=== PATIENT | male | born 1975 | race Caucasian/White ===

== ENCOUNTER 2017-08-02 18:59 | Emergency (ER) | payer MEDICAID ==
[2017-08-02 19:07] VITALS: BP 124/78
[2017-08-02] MEDS ORDERED: IBUPROFEN 800 MG TABLET PO STA (19:34)
[2017-08-02] MEDS ORDERED: predniSONE 20 MG TABLET PO STA (19:34)
--- NOTE | 2017-08-02 19:36 | ED Physician Documentation ---
PD HPI HEENT - Stated complaint Stated Complaint: SORE THROAT - Chief complaint Chief Complaint: Heent - History obtained from History obtained from: Patient - History of Present Illness Timing - onset: Other (Sore throat for a week, at the outset he had sinus pressure and nasal drainage and a cough, but now it is just the throat. He has had some fatigue and difficulty swallowing but no fevers or cough at this juncture.) Review of Systems Constitutional: denies: Fever, Chills Nose: denies: Rhinorrhea / runny nose, Congestion Throat: reports: Sore throat Cardiac: denies: Chest pain / pressure Respiratory: denies: Cough PD PAST MEDICAL HISTORY - Past Surgical History Past Surgical History: Yes - Present Medications Home Medications: Ambulatory Orders Medication Instructions Recorded Confirmed Clindamycin [Cleocin] 300 mg PO Q6H 10 Days capsule 06/14/14 Oxycodone HCl/Acetaminophen 1 - 2 each PO Q6H PRN #15 tablet 06/14/14 [Percocet 5-325 mg Tablet] Ibuprofen [Motrin] 800 mg PO Q8H PRN #30 tablet 08/02/17 predniSONE [Deltasone] 60 mg PO DAILY 5 Days tablet 08/02/17 - Allergies Allergies/Adverse Reactions: Allergies Allergy/AdvReac Type Severity Reaction Status Date / Time No Known Drug Allergies Allergy Verified 08/02/17 19:07 - Social History Does the pt smoke?: No Smoking Status: Never smoker Does the pt drink ETOH?: Yes Does the pt have substance abuse?: No - Immunizations Immunizations are current?: Yes - POLST Patient has POLST: No PD ED PE NORMAL - Vitals Vital signs reviewed: Yes - General General: Alert and oriented X 3, No acute distress - HEENT HEENT: Other (Voice is normal, and tonsillar pillars are red but there is no exudate or swelling. His neck is supple without adenopathy. TMs are normal with the exception of some sclerosis bilaterally.) - Neck Neck: Supple, no meningeal sign, No bony TTP - Psych Psych: Normal mood, Normal affect Results - Vitals Vitals: Vital Signs - 24 hr 08/02/17 19:05 Temperature 37.1 C Heart Rate 87 Respiratory 14 Rate Blood Pressure 124/78 O2 Saturation 98 Oxygen O2 Source Room air - Labs Labs: Laboratory Tests 08/02/17 19:08 Group A Strep Rapid Negative Departure - Departure Disposition: Home, Self Care Clinical Impression: Viral pharyngitis Condition: Good Record reviewed to determine appropriate education?: Yes Instructions: ED Pharyngitis Viral Report Pending Prescriptions: Ibuprofen [Motrin] 800 mg PO Q8H PRN #30 tablet PRN Reason: PAIN &/OR FEVER predniSONE [Deltasone] 60 mg PO DAILY 5 Days tablet Comments: If your throat culture is positive, we will call you in a couple of days. Return if worsening or if new symptoms develop, follow-up with your doctor in 1 week if not better.
== END 2017-08-02 19:40 | disposition home or self-care (01) ==
LOC: ED 18:59
DX: J02.8 Acute pharyngitis due to other specified organisms (principal); B97.89 Other viral agents as the cause of diseases classified elsewhere
CPT/HCPCS: 87070; 87430; 99283; A9270; J7512

== ENCOUNTER 2017-10-18 12:00 | Emergency (ER) | payer MEDICAID ==
[2017-10-18 12:09] VITALS: BP 138/83
--- NOTE | 2017-10-18 12:21 | ED Physician Documentation ---
PD HPI HEENT - Stated complaint Stated Complaint: TOOTH PAIN - Chief complaint Chief Complaint: Heent - History obtained from History obtained from: Patient - History of Present Illness Timing - onset: Yesterday (Pain from a right mandibular incisor since yesterday. He is known he has had a cavity for a long time but it only been hurting for a day and it is severe. There is no facial swelling or fever.) Review of Systems Constitutional: denies: Fever, Chills Nose: denies: Rhinorrhea / runny nose, Congestion Throat: denies: Sore throat PD PAST MEDICAL HISTORY - Past Surgical History Past Surgical History: Yes - Present Medications Home Medications: Ambulatory Orders Medication Instructions Recorded Confirmed HYDROcod/ACETAM 5/325 [Hague 5/325] 1 - 2 ea PO Q6H PRN #15 tablet 10/18/17 Ibuprofen [Motrin] 800 mg PO Q8H PRN #30 tablet 10/18/17 Penicillin V Potassium 500 mg PO QID #40 tablet 10/18/17 - Allergies Allergies/Adverse Reactions: Allergies Allergy/AdvReac Type Severity Reaction Status Date / Time No Known Drug Allergies Allergy Verified 08/02/17 19:07 - Social History Does the pt smoke?: No Smoking Status: Never smoker Does the pt drink ETOH?: Yes Does the pt have substance abuse?: No - Immunizations Immunizations are current?: Yes - POLST Patient has POLST: No PD ED PE NORMAL - Vitals Vital signs reviewed: Yes - General General: Alert and oriented X 3, No acute distress - HEENT HEENT: Other (#23 has a large cavity almost down to the gumline, it is tender but there is no gingival swelling or sublingual swelling or trismus.) - Neck Neck: Supple, no meningeal sign, No bony TTP - Neuro Neuro: Alert and oriented X 3, Normal speech - Psych Psych: Normal mood, Normal affect Results - Vitals Vitals: Vital Signs - 24 hr 10/18/17 12:06 Temperature 36.2 C L Heart Rate 77 Respiratory 16 Rate Blood Pressure 138/83 H O2 Saturation 100 Oxygen O2 Source Room air PD MEDICAL DECISION MAKING - Sepsis Event Vital Signs: Vital Signs - 24 hr 10/18/17 12:06 Temperature 36.2 C L Heart Rate 77 Respiratory 16 Rate Blood Pressure 138/83 H O2 Saturation 100 Oxygen O2 Source Room air Departure - Departure Disposition: 01 Home, Self Care Clinical Impression: Pain due to dental caries Condition: Good Record reviewed to determine appropriate education?: Yes Instructions: ED Tooth Pain Prescriptions: HYDROcod/ACETAM 5/325 [Hague 5/325] 1 - 2 ea PO Q6H PRN #15 tablet PRN Reason: Pain Ibuprofen [Motrin] 800 mg PO Q8H PRN #30 tablet PRN Reason: PAIN &/OR FEVER Penicillin V Potassium 500 mg PO QID #40 tablet Comments: It is very important that you follow-up with a dentist. When it comes to dental problems like yours, the emergency department can only offer a short- term solution to your long-term problem. A couple of low cost options for dental care include: [facility] in [place], calls [phone] for an appointment Or [facility] in [place], call [phone] for an appointment. Do not drink or drive while taking narcotic pain medication. Note that many narcotic pain relievers also contain Tylenol/acetaminophen. Please ensure that your total dose of acetaminophen from all sources does not exceed 3 g (3000 mg) per day. You may get constipated while on this medication. Take a stool softener such as Colace twice a day while you are on it. Also add an [id number] laxative such as senna or MiraLAX on any day that you do not have a bowel movement. If you received a narcotic pain medication or sedative while in the emergency department, do not drive for the next 24 hours. Your blood pressure was elevated today on check into the emergency department. This does not mean that you have hypertension, it is a common phenomenon to come to the emergency department and have elevated blood pressure. I recommend that you see your primary care physician within the week to have it rechecked when you are feeling better. Discharge Date/Time: 10/18/17 12:25
== END 2017-10-18 12:25 | disposition home or self-care (01) ==
LOC: ED 12:00
DX: K02.9 Dental caries, unspecified (principal); R03.0 Elevated blood-pressure reading, without diagnosis of hypertension
CPT/HCPCS: 99283

== ENCOUNTER 2020-10-09 08:00 | Outpatient (CLI) | payer BC ==
--- NOTE | 2020-10-09 18:47 | XRAY Report ---
PROCEDURE: Forearm LT INDICATIONS: CONTUSION OF LEFT FOREARM TECHNIQUE: 2 views of the forearm were acquired. COMPARISON: AP and lateral views of the forearm. FINDINGS: Bones: No acute fractures or dislocations. No suspicious bony lesions. Soft tissues: No suspicious soft tissue calcifications or masses. Mild soft tissue edema is seen in the distal forearm. IMPRESSION: No acute osseous abnormality. If there is clinical concern or persistent symptoms, additional imaging such as repeat radiographs or advanced imaging (e.g. CT, MRI) may be helpful for further evaluation. Reviewed by: Venu Lowry MD on 10/09/2020 5:46 PM [facility] Approved by: Venu Lowry MD on 10/09/2020 5:46 PM [facility] Station ID: [id number]
== END 2020-10-09 23:59 | disposition home or self-care (01) ==
LOC: DI.S 08:00
PROVIDERS: ATTEND Physician Assistant Medical
DX: S50.12XA Contusion of left forearm, initial encounter (principal)

== ENCOUNTER 2021-04-17 08:00 | Outpatient (CLI) | payer BC | END 2021-04-17 23:59 | disposition home or self-care (01) | LOC: LAB.N 08:00 | PROVIDERS: ATTEND Family Medicine | DX: U07.1 COVID-19 (principal) ==